=== PATIENT | male | born 1950 | race Caucasian/White ===

== ENCOUNTER 2020-04-05 11:15 | Emergency (ER) | payer OTHER, MEDICARE, SELFPAY ==
[2020-04-05 11:18] VITALS: BP 153/95; PULSE 76; RESP 17; TEMP 36.3; O2SAT 97; BMI 30.2
--- NOTE | 2020-04-05 11:39 | RAD_ITS ---
STUDY: X-RAY - RIGHT SHOULDER REASON FOR EXAM: Male, 69 years old. RIGHT SHOULDER PAIN AFTER DOING REPETITIVE MOVEMENTS AT WORK. TECHNIQUE: 4 view(s) of the shoulder. COMPARISON: None. FINDINGS: There is mild degenerative arthrosis of the glenohumeral articulation. There is hypertrophic osteoarthrosis of the acromioclavicular joint with inferior osseous spur formation. Normal acromion. Degenerative spur is seen along the inferior medial aspect of the right humeral head. Decreased distance between the humeral head in the acromion. This is suggestive of rotator cuff injury. The soft tissue structures are unremarkable. Normal visualized pulmonary apex. RAD/Shoulder min 2 Views IMPRESSION: Degenerative changes. Findings suggestive of rotator cuff injury. Electronically Signed: Maurisio Donahue, at 12:17 EST , Service support ,
--- NOTE | 2020-04-05 11:39 | ED.DCSUM_ITS ---
- ER Visit Summary Date of Service: 04/05/20 Chief Complaint: [Injury to right shoulder] History of Present Illness: The patient is a 69 M [presents to the emergency department with complaint of right shoulder pain after sustaining an injury to it around 10:15 AM while at work. 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 Today he was taking some of the chains off when he developed sudden onset of severe pain in the right shoulder. Patient is right-hand dominant. Patient has pain with range of motion.] Physical Examination: [HEENT-PERRLA, EOMI. Cranial nerves II through XII grossly intact. TMs clear. Mucous membranes moist. No adenopathy. Cardiovascular-regular rate and rhythm without murmur or ectopy Lungs-clear to auscultation, chest wall stable without crepitus or subcu emphysema Abdomen-normoactive bowel sounds, soft, nontender, no rebound or rigidity, no peritoneal signs. Extremities-intact ?4, normal range of motion, normal pulses, atraumatic. Right shoulder-no deformity noted. No significant soft tissue swelling. Patient has tenderness over the right deltoid as well as glenohumeral joint. Patient has painful range of motion but is able to put his arm behind his back. He is able to abduct the arm past 90 degrees. He is neurovascular intact distally.] Test Results: [X-rays of the right shoulder obtained which showed degenerative changes and decreased distance between the humeral head and the acromium which could be indicative of a rotator cuff injury.] Emergency Department Course and Treatment: [Patient did not want a thing for pain on arrival. Patient was given a sling.] Treatment Plan: [Patient will be given a sling and work restrictions and referral to orthopedics for follow-up.] Disposition: [Discharged home in stable condition] Impression: [Right shoulder sprain-possible internal derangement] This note was generated with [employer] dictation software. It may contain incorrect words, spelling, and punctuation that were not noted in review of the chart prior to signing ED Disposition - Plan for ED Patient: Referrals: Care Physician,No Primary [Primary Care Provider] -
--- NOTE | 2020-04-05 12:29 | DCINST.ED_ITS ---
ED Disposition - Plan for ED Patient: Instructions: ED Shoulder Sprain Prescriptions: Hydrocodone Bitart/Apap 5-325 [[place] 5MG-325MG] 1 tab PO Q4H PRN PRN 2 Days #10 tab PRN Reason: Pain Prescription Printed Referrals: Care Physician,No Primary [Primary Care Provider] - Elizabeth Lee DO [STAFF PHYSICIAN] - 3-5 Days
== END 2020-04-05 12:35 | disposition home or self-care (01) ==
LOC: ED 12:18
PROVIDERS: Emergency Provider Emergency Medicine
DX: S43.401A Unspecified sprain of right shoulder joint, initial encounter (principal); X58.XXXA Exposure to other specified factors, initial encounter
CPT/HCPCS: 73030; 99283

== ENCOUNTER → 2020-04-19 10:23 | Outpatient (CLI) | payer OTHER, SELFPAY ==
[2020-04-11 08:14] VITALS: BMI 30.1
--- NOTE | 2020-04-19 10:25 | MRI_ITS ---
STUDY: MRI RIGHT SHOULDER REASON FOR EXAM: Male, 70 years old. RT SHOULDER INJURY 2 weeks ago -- pain upper arm and anterior shoulder with limited rom TECHNIQUE: Standardized fat and water weighted pulse sequences were obtained in all 3 orthogonal planes. COMPARISON: X-ray of the right shoulder dated April 05, 2020 FINDINGS: A full-thickness tear is present in the far anterior aspect of the supraspinatus tendon with retraction of the tendon stump 3.55 cm proximal to the greater tuberosity. Small undersurface tears are present in the anterior and posterior aspects of the supraspinatus tendon at the greater tuberosity insertion site. Mild tendon thickening and increased signal abnormality is also present in the remaining fibers. Normal infraspinatus tendon. Normal subscapularis tendon. Normal teres minor tendon. There is mild muscular atrophy of the supraspinatus muscle. Normal infraspinatus muscle. Normal subscapularis muscle. Normal teres minor muscle. The glenohumeral joint space is mildly to moderately narrowed with small cortical osteophytes in addition to subchondral cystic changes in the glenoid. Several large loose bodies are present in the subcoracoid region of the joint space. Normal humeral head and visualized proximal humerus. Normal biceps labral complex. Normal intracapsular long biceps tendon. There is labral degeneration with areas of fraying, but there is no demonstrated discrete labral tear. Normal capsulo- ligamentous complex. Normal rotator interval. There is moderate osteoarthritis of the acromioclavicular articulations. There is a Type II morphology (curved), with a neutral orientation. There is no subacromial-subdeltoid bursal fluid. Normal visualized coracohumeral and coracoacromial ligaments. Normal quadrilateral space. Normal axillary space. Normal deltoid muscle. Normal trapezius muscle. MRI/Upper Ext Joint Only(Routine) IMPRESSION: 1. A full-thickness tear is present in the far anterior aspect of the supraspinatus tendon with retraction of the tendon stump 3.55 cm proximal to the greater tuberosity. 2. Small undersurface tears of the supraspinatus tendon 3. 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 Fraying of the glenoid labrum 5. Large loose bodies in the subcoracoid recess Electronically Signed: Yoni Tejada MD at 16:28 EST , Service support ,
== END ==
PROVIDERS: Referring Provider Orthopaedic Surgery; Visit Provider Orthopaedic Surgery
DX: S43.401A Unspecified sprain of right shoulder joint, initial encounter (principal)
CPT/HCPCS: 73221